=== PATIENT | female | born 1955 | race Hispanic/Latino ===

== ENCOUNTER 2019-11-15 10:12 | Emergency (ER) | payer MEDICARE, OTHER ==
[~2019-11-15] VITALS: Ht 154.9 cm; Wt 74.8 kg
[2019-11-15] MEDS ORDERED: ONDANSETRON HCL 4 MG ORAL DISINTEGRATING TAB ONE (10:28)
[2019-11-15] MEDS ORDERED: TRAMADOL HCL 50 MG TAB PO ONE (10:30)
[2019-11-15] MEDS ORDERED: CYCLOBENZAPRINE HCL 10 MG TAB PO ONE (10:30)
--- NOTE | 2019-11-15 10:56 | Diagnostic Imaging Report ---
EXAMINATION: CHEST 2 VIEWS INDICATION: Trauma COMPARISON: None FINDINGS: LINES/TUBES:None LUNGS:The lungs are well-inflated. No focal consolidation or pulmonary edema. PLEURA:No pleural effusion or pneumothorax. MEDIASTINUM:The cardiomediastinal silhouette appears normal in size and shape. BONES/SOFT TISSUES:No acute osseous injury. ABDOMEN:No free air under the diaphragm. IMPRESSION: No radiographic evidence of acute traumatic injury to the thorax. Signed by: Vernell Garcia MD on 11/15/2019 10:53 AM
--- OUTSIDE RECORDS SUMMARY | 2019-11-16 14:05 | XMS REPORT | Encounter Summary ---
Author Organization Unknown Address [address] [place] [address] Phone [phone] Care Team Providers Care Carpenter Rough Name Role Phone Dr. Gilmar Millard 3 [phone] Naveed Monique MD 107 [phone] Fabricio Woodall 130 [phone] Reason for Visit AWV Annual Wellness Visit Female (P); sore throat; cough Instructions 1. Adult health examination 2. Body mass index 30+ - obesity body mass index: care instructions learning about healthy weight CMP, serum or plasma lipid panel, serum 3. Advance directive discussed with patient advance care planning: care instructions 4. Depression screening 5. Bone density scan declined 6. Alcohol consumption screening learning about alcohol misuse 7. Mammogram declined 8. Pain in throat rapid strep group A, throat 9. Screening for malignant neoplasm of colon colonoscopy referral 10. Hypothyroidism TSH, serum or plasma 11. Screening for disorder hepatitis C virus RNA, quant, PCR, serum or plasma 12. Upper respiratory infection Zithromax Z-Wesley 250 mg tablet Tessalon Perles 100 mg capsule Discussion Note: None recorded. Plan of Care Reminders Provider Appointments Return to Office on or around 07/03/2019 Gilmar Vargas MD Lab Rapid Strep Group a, Throat 01/04/2019 [facility] ([facility] [place] CMP, Serum or Plasma 01/04/2019 [facility] Laboratory Lipid Panel, Serum 01/04/2019 [facility] Laboratory TSH, Serum or Plasma 01/04/2019 [facility] Laboratory Hepatitis C Virus RNA, Quant, PCR, Serum or Plasma 01/04/2019 [facility] Laboratory Referral Colonoscopy Referral 01/04/2019 Procedures None recorded. Surgeries None recorded. Imaging None recorded. Medications Name Start Date alprazolam 0.5 mg tablet Take 1 tablet every day by oral route. levothyroxine 100 mcg tablet TAKE 1 TABLET BY MOUTH EVERY DAY omeprazole 40 mg capsule,delayed release Take 1 capsule every day by oral route. Tessalon Perles 100 mg capsule Take 1 capsule every 8 hours by oral route as needed for 10 days. ursodiol 500 mg tablet Take 1 tablet twice a day by oral route. Zithromax Z-Wesley 250 mg tablet TAKE 2 TABLETS (500 MG) BY ORAL ROUTE ONCE DAILY FOR 1 DAY THEN 1 TABLET (250 MG) BY ORAL ROUTE ONCE DAILY FOR 4 DAYS Medications Administered None recorded. Vitals Height Weight BMI Blood Pressure 5 ft 0.6 in 162.8 lbs 31.2 kg/m2 104/68 mm[Hg] Lab Results Date Name Specimen Result Interpretation Description Value Range Status Address Rapid Strep Group a, Throat Strep negative [facility] ([facility]) [place]: [address] [place] [address] Allergies Code Code System Name Reaction Severity Status Onset NKDA Problems Name Status Onset Date Source Hypothyroidism Active Anxiety Active Procedures Date Name Performed by 07/15/2016 Egd Information not available 01/16/2013 Colonoscopy Information not available Partial Hysterectomy Information not available Vaccine List None recorded. Social History Smoking Status Former Smoker (1 PPW) Past Encounters 01/04/2019 Adult Health Examination; Body Mass Index 30+ - Obesity; Advance Directive Discussed with Patient; Depression Screening; Bone Density Scan Declined; Alcohol Consumption Screening; Mammogram Declined; Pain in Throat; Screening for Malignant Neoplasm of Colon; Hypothyroidism; Screening for Disorder; Upper Respiratory Infection Gilmar Vargas MD: [address] [place] [address], Ph. History of Present Illness Mini Cog Reported By: Patient Functional Ability: Personal/Social/ Draw a clock and write in the numbers in the correct place, and set the time to 10 minutes after 11 o'clock was completed correctly? No, 3 word recall: Your nurse or doctor will ask you to remember 3 words. In 5 minutes, they will ask you to repeat them. Patient recalled 3 words Note:Sore throat and dry cough since this AM. Denies runny nose, nasal congestion, fever, ear pain, sob, wheezing or chest pain. Review of Systems:ROS as noted in the HPI Review of Systems None recorded. Physical Exam General Adult Exam (male) Reported By: Patient Constitutional: General Appearance: healthy-appearing, obese. Level of Distress: NAD. Ambulation: ambulating normally Eyes: Lids and Conjunctivae: non-injected, no discharge. EOM: EOMI ENMT: Ears: TMs clear. Nose: no sinus tenderness, nares non-patent, nasal discharge, post nasal drip. Lips, Teeth, and Gums: no mouth or lip ulcers. Oropharynx: moist mucous membranes, no exudates, tonsils not enlarged, erythema Neck: Neck: supple, trachea midline. Lymph Nodes: cervical LAD. Thyroid: no enlargement, non-tender Lungs: Auscultation: breath sounds normal Cardiovascular: Heart Auscultation: RRR, normal S1, normal S2, no murmurs. Neck vessels: no carotid bruits. Pulses including femoral / pedal: normal throughout Abdomen: Inspection and Palpation: soft, non-distended, no tenderness, no guarding Musculoskeletal:: Motor Strength and Tone: normal, normal tone. Joints, Bones, and Muscles: normal movement of all extremities. Extremities: no edema Neurologic: Gait and Station: normal gait Skin: Inspection and palpation: no rash, no lesions
--- OUTSIDE RECORDS SUMMARY | 2019-11-16 14:05 | XMS REPORT ---
Author Author [facility] Address Unknown Phone Unavailable Care Team Providers Care Parts Counter Representative Name Role Phone Jameson QUICK Unavailable Unavailable Problems This patient has no known problems. Allergies, Adverse Reactions, Alerts This patient has no known allergies or adverse reactions. Medications This patient has no known medications. Results Test Description Test Time Test Comments Text Results Atomic Results Result Comments CHEST 2 VIEWS 2019-11-15 10:51:00 [place] [id number] [place] [address] Patient Name: SHADE SANTANA MR #: [id number] : 1955 Age/Sex: 64/F Req #: [id number] Adm Physician: Ordered by: CALIN ALFRED AMMONIUM SULFATE OPERATOR Report #: [id number] Location: ER Room/Bed: Procedure: [id number] DX/CHEST 2 VIEWS Exam Date: 11/15/19 Exam Time: 1025 REPORT STATUS: Signed EXAMINATION: CHEST 2 VIEWS INDICATION: Trauma COMPARISON: None FINDINGS: LINES/TUBES:None LUNGS:The lungs are well-inflated. No focal consolidation or pulmonary edema. PLEURA:No pleural effusion or pneumothorax. MEDIASTINUM:The cardiomediastinal silhouette appears normal in size and shape. BONES/SOFT TISSUES:No acute osseous injury. ABDOMEN:No free air under the diaphragm. IMPRESSION: No radiographic evidence of acute traumatic injury to the thorax. Signed by: Spenser Schuler MD on 11/15/2019 10:53 AM Dictated By: SPENSER SCHULER MD 105 Transcribed By: SHREYA on 11/15/19 105 COPY TO: CALIN ALFRED NP
== END 2019-11-15 11:24 | disposition home or self-care (01) ==
LOC: ER 10:12
DX: S46.812A Strain of other muscles, fascia and tendons at shoulder and upper arm level, left arm, initial encounter (principal); V43.52XA Car driver injured in collision with other type car in traffic accident, initial encounter; Y92.410 Unspecified street and highway as the place of occurrence of the external cause; E03.9 Hypothyroidism, unspecified
CPT/HCPCS: 71046; 99283; Q0162

== ENCOUNTER → 2022-01-05 | Outpatient (CLI) | payer MEDICARE | LOC: US 07:08 | PROVIDERS: ATTEND Family Medicine | DX: K74.3 Primary biliary cirrhosis (principal) | CPT/HCPCS: 76705 ==